=== PATIENT | female | born 1985 | race Caucasian/White ===

== ENCOUNTER 2020-07-24 13:32 | Inpatient (IN) ==
[2020-07-24] MEDS ORDERED: Lactated Ringers 1000 ml BAG 1,000 ML IV ONE (14:42)
[2020-07-24] MEDS ORDERED: Buffered Lidocaine 1% SYRIN 1 ml INTRADERM ONE (14:42)
[2020-07-24] MEDS ORDERED: Lactated Ringers 1000 ml BAG 1,000 ML IV SCH (15:00)
[2020-07-24] MEDS ORDERED: Dinoprostone 10 MG VAG.SUPP VAGINAL ONE (15:00)
[2020-07-24 15:17] LABS: ABS Lymphocytes 1.9 10^3/ul (1.0-4.8); ABS Monocytes 0.8 10^3/ul (0-0.8); ABS Neutrophils 10.2 10^3/ul (1.5-7.7); Eosinophil % 0.1 %; Hematocrit 40 % (35-47); Hemoglobin 13.5 g/dL (12.0-16.0); Lymphocyte % 14.9 %; Mean Corpuscular HGB Conc 34 g/dL (31-36); Mean Corpuscular Hemoglobin 30 pg (27-31); Mean Corpuscular Volume 89 fL (80-97); Mean Platelet Volume 8.7 fL (7.4-10.4); Platelet Count 305 10^3/uL (150-450); Red Blood Count 4.43 10^6 /uL (3.70-4.87); Red Cell Distribution Width 13 % (10-15)
[2020-07-24 15:24] LABS: Urine Appearance Cloudy; Urine Bilirubin Negative (Negative); Urine Blood Negative (Negative); Urine Color Yellow; Urine Glucose Negative (Negative); Urine Ketones Trace (Negative); Urine Nitrite Negative (Negative); Urine Protein Negative (Negative); Urine Specific Gravity 1.018 (1.010-1.030); Urine Urobilinogen Negative (Negative)
[2020-07-24 15:59] LABS: Albumin 3.5 g/dL (3.2-5.2); Albumin/Globulin Ratio 1.2 (1-3); BUN/Creatinine Ratio 14.1 (8-20); EGFR Non-African American 94.2 (>60); Globulin 2.9 g/dL (2-4); Potassium 3.6 mmol/L (3.5-5.0); Total Bilirubin 0.3 mg/dL (0.2-1.0); Total Protein 6.4 g/dL (6.4-8.9); Uric Acid 5.4 mg/dL (2.3-6.6)
[2020-07-24 16:11] LABS: Urine Benzodiazepine Screen None Detected (None Detect); Urine Cannabinoids Screen None Detected (None Detect); Urine Opiates Screen None Detected (None Detect)
[2020-07-25] MEDS ORDERED: Promethazine INJ(RESTRICTED) 25 MG/ML 1 ml VIAL IM ONE (03:53)
[2020-07-25] MEDS ORDERED: Morphine 10 MG/ML VIAL (1 ml) IM ONE (03:53)
[2020-07-25] MEDS ORDERED: Oxytocin in LR 20 UNITS/1,000 ML BAG IVPB SCH (10:00)
[2020-07-25] MEDS ORDERED: OBEPIDURAL 250 ML EPIDURAL ONE (16:26)
[2020-07-25] MEDS ORDERED: Lactated Ringers 1000 ml BAG 1,000 ML IV ONE (17:00)
[2020-07-25] MEDS ORDERED: Lactated Ringers 1000 ml BAG 1,000 ML IV SCH (17:00)
[2020-07-25] MEDS ORDERED: Sodium Citrate/Citric Acid LIQ 15 ML UDC PO PRN (17:00)
[2020-07-25] MEDS ORDERED: OBEPIDURAL 250 ML EPIDURAL SCH (17:00)
[2020-07-25] MEDS ORDERED: Phenylephrine 40 mcg/mL 10mL (400mcg) SYRINGE IV PUSH PRN ×2 (17:00)
[2020-07-25] MEDS ORDERED: ceFOXitin 2 GM IVPREMIX 2 GM/50 ML BAG ONE (23:43)
[2020-07-26] MEDS ORDERED: Oxytocin 10 UNITS/ML 1 ML VIAL ONE (00:23)
[2020-07-26] MEDS ORDERED: fentaNYL 100 mcg/2 ml 50 MCG/ML VIAL ONE ×2 (00:23→01:03)
[2020-07-26] MEDS ORDERED: Chloroprocaine 3% 20 ml VIAL ONE (00:24)
[2020-07-26] MEDS ORDERED: Morphine PF AMP (0.5MG/ML) 5 MG/10 ML AMP ONE (00:24)
[2020-07-26] MEDS ORDERED: Lidocaine 2% PF 10 ML AMP ONE (00:25)
[2020-07-26] MEDS ORDERED: Phenylephrine 40 mcg/mL 10mL (400mcg) SYRINGE ONE (00:53)
[2020-07-26] MEDS ORDERED: Ondansetron 4 mg VIAL 2 MG/ML 2 ml VIAL IV PRN ×2 (01:16→01:17)
[2020-07-26] MEDS ORDERED: Naloxone 0.4 mg VIAL 0.4 mg/ml 1 ml VIAL IV PRN ×2 (01:16→01:17)
[2020-07-26] MEDS ORDERED: diPHENhydraMINE IV 50 MG/ML 1 ml VIAL (BENADRYL) IV PRN (01:17)
[2020-07-26] MEDS ORDERED: Scopolamine PATCH Remove NOTE PATCH OFF PRN (01:17)
[2020-07-26] MEDS ORDERED: oxyCODONE/Acetamin 5/325 mg TAB PO PRN ×2 (01:17)
[2020-07-26] MEDS ORDERED: Glycerin ADULT 2.4 gm SUPP PR PRN (01:54)
[2020-07-26] MEDS ORDERED: Dibucaine 1% OINT 28.35 GM TUBE PR PRN (01:54)
[2020-07-26] MEDS ORDERED: Witch Hazel PAD JAR TOPICAL PRN (01:54)
[2020-07-26] MEDS ORDERED: Methylergonovine 0.2 mg AMPULE 1 ml AMP IM ONE (01:59)
[2020-07-26] MEDS ORDERED: Oxytocin in LR 20 UNITS/1,000 ML BAG IVPB SCH (02:00)
[2020-07-26] MEDS ORDERED: Methylergonovine 0.2 mg AMPULE 1 ml AMP ONE (02:07)
[2020-07-26] MEDS: fentaNYL 100 mcg/2 ml 50 MCG/ML VIAL IV PRN ×2 (02:46→03:12)
[2020-07-27 07:08] LABS: ABS Basophils 0.1 10^3/ul (0-0.2); ABS Lymphocytes 2.1 10^3/ul (1.0-4.8); ABS Monocytes 1.3 10^3/ul (0-0.8); Eosinophil % 0.2 %; Hematocrit 33 % (35-47); Hemoglobin 11.1 g/dL (12.0-16.0); Lymphocyte % 13.4 %; Mean Corpuscular HGB Conc 33 g/dL (31-36); Mean Corpuscular Hemoglobin 30 pg (27-31); Mean Corpuscular Volume 91 fL (80-97); Mean Platelet Volume 8.3 fL (7.4-10.4); Platelet Count 239 10^3/uL (150-450); Red Blood Count 3.67 10^6 /uL (3.70-4.87); Red Cell Distribution Width 14 % (10-15); White Blood Count 15.5 10^3/uL (3.5-10.8)
[2020-07-28 07:56] VITALS: BP 110/72
== END 2020-07-28 13:03 | disposition home or self-care (01) | DRG 540 ==
LOC: MCHOBOUT 13:32 → MCHOB 14:40
PROVIDERS: ADMIT Midwife; ATTEND Obstetrics & Gynecology